=== PATIENT | female | born 1935 | race Hispanic/Latino ===

== ENCOUNTER 2017-09-30 09:38 | Outpatient (CLI) | payer MEDICARE, MEDICAID | END 2017-09-30 09:39 | disposition home or self-care (01) | LOC: BICRAD 09:38 | PROVIDERS: ATTEND Family Medicine | DX: M54.5 Low back pain (principal); M47.896 Other spondylosis, lumbar region; M41.86 Other forms of scoliosis, lumbar region | CPT/HCPCS: 72100 ==

== ENCOUNTER 2019-03-24 15:05 | Outpatient (CLI) | payer MEDICARE, MEDICAID ==
--- NOTE | 2019-03-24 16:24 | CT ---
CT HEAD WITHOUT CONTRAST: 03/24/19 HISTORY: Injury. COMPARISON: 04/28/11. FINDINGS: Mild cortical volume loss. Mild chronic ischemic change. No hemorrhage, edema, or evidence of acute i nfarct. There is ischemic changes seen in the peripheral basal ganglia regions and subcortical region s of insular cortex. These are stable. Sinuses and mastoids are clear. IMPRESSION: No evidence of hemorrhage. There are chronic changes which appear stable. No acute process. POS: [facility]
== END 2019-03-24 15:06 | disposition home or self-care (01) ==
LOC: BICCT 15:05
PROVIDERS: ATTEND Family Medicine
DX: S06.2X9A Diffuse traumatic brain injury with loss of consciousness of unspecified duration, initial encounter (principal)
CPT/HCPCS: 70450

== ENCOUNTER 2019-04-16 16:56 | Emergency (ER) | payer MEDICARE, MEDICAID ==
[2019-04-16] MEDS ORDERED: Mag-Al 1200 mg/1200 mg/30 ML UDCUP ONE (17:29)
[2019-04-16] MEDS ORDERED: Lidocaine Viscous Sol 2% 15 ml UD Cup ONE (17:29)
--- NOTE | 2019-04-16 17:38 | RAD ---
EXAM: Chest PA and lateral: HISTORY: Dysphasia. 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 This may relat e to the history of dysphasia. Recommend elective esophagram or endoscopy follow-up. Lung fong are clear. Vascular markings are normal. Heart and mediastinum appear unremarkable. Pacemaker leads are unchanged. Osseous structures are unremarkable. 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 Recomme nd elective follow-up.
--- NOTE | 2019-04-16 17:47 | RAD ---
NECK FOR SOFT TISSUES TWO VIEWS: History: Sensation foreign body. FINDINGS: Epiglottis appears normal. Hypopharanx is unremarkable. The prevertebral soft tissues appear normal. Mild degenerative changes in the cervical spine. IMPRESSION: Unremarkable soft tissue neck. POS: OFF
== END 2019-04-16 19:08 | disposition home or self-care (01) ==
LOC: ERS 16:56
DX: K44.9 Diaphragmatic hernia without obstruction or gangrene (principal); E11.9 Type 2 diabetes mellitus without complications; I10 Essential (primary) hypertension; Z79.899 Other long term (current) drug therapy; Z79.82 Long term (current) use of aspirin
CPT/HCPCS: 70360; 71046

== ENCOUNTER 2020-08-23 17:14 | Emergency (ER) | payer MEDICARE, MEDICAID ==
[2020-08-23] MEDS ORDERED: Lidocaine Viscous Sol 2% 15 ml UD Cup ONE (19:14)
[2020-08-23] MEDS ORDERED: Mag-Al 1200 mg/1200 mg/30 ML UDCUP ONE (19:14)
== END 2020-08-23 19:39 | disposition home or self-care (01) ==
LOC: ERS 17:14
DX: K21.9 Gastro-esophageal reflux disease without esophagitis (principal); E11.9 Type 2 diabetes mellitus without complications; I10 Essential (primary) hypertension; F03.90 Unspecified dementia, unspecified severity, without behavioral disturbance, psychotic disturbance, mood disturbance, and anxiety; Z79.82 Long term (current) use of aspirin; Z79.899 Other long term (current) drug therapy; Z79.84 Long term (current) use of oral hypoglycemic drugs
CPT/HCPCS: 99284

== ENCOUNTER 2020-10-23 19:11 | Inpatient (IN) | payer MEDICARE, MEDICAID ==
[2020-10-23] MEDS ORDERED: Cefepime 2 GM VIAL ONE (19:41)
[2020-10-23 19:50] LABS: #Basophils 0.1 thou/uL (0.0-0.2); #Eosinphils 0.4 thou/uL (0.0-0.7); #Lymphocytes 1.8 thou/uL (1.20-3.40); #Monocytes 0.6 thou/uL (0.11-0.59); #Neutrophils 3.6 thou/uL (1.40-6.50); %Basophils 0.8 % (0.0-1.0); %Eosinophils 6.3 % (0.0-10.0); %Lymphocytes 27.8 % (21.0-51.0); %Monocytes 9.4 % (0.0-10.0); %Neutrophils 55.7 % (42.0-75.0); Hemoglobin 14.5 g/dL (12.0-16.0); Mean Corpuscular HGB CONC 33.8 g/dL (32.0-36.0); Mean Corpuscular Hemoglobin 30.3 pg (27.0-31.0); Mean Corpuscular Volume 89.6 fL (78.0-98.0); Mean Platelet Volume 7.6 fL (7.4-10.4); Platelet Count 159 thou/uL (130-400); RBC Distribution Width 12.3 % (11.5-14.5); Red Blood Cell (RBC) Count 4.79 mill/uL (4.20-5.40); White Blood Cell (WBC) Count 6.5 thou/uL (4.8-10.8)
[2020-10-23 20:11] LABS: ALT (SGPT) 15 U/L (8-55); AST (SGOT) 24 U/L (5-34); Alkaline Phosphatase 106 U/L (40-110); Anion Gap 14 mmol/L (10-20); BUN (Urea Nitrogen) 9 mg/dL (9.8-20.1); Bilirubin, Total 0.9 mg/dL (0.2-1.2); CK (CPK) 106 U/L (29-168); Calc. Creatinine Clearance 0 mL/min (70-130); Calcium 9.3 mg/dL (7.8-10.44); Carbon Dioxide 24 mmol/L (23-31); Chloride 97 mmol/L (98-107); Globulin 3.8 g/dL (2.4-3.5); Glucose 258 mg/dL (83-110); Magnesium 1.7 mg/dL (1.6-2.6); Potassium 3.7 mmol/L (3.5-5.1); Protein, Total 7.8 g/dL (5.8-8.1); Sodium 131 mmol/L (136-145)
[2020-10-23 20:47] LABS: Bacteria/HPF 4+ HPF (None Seen); Bilirubin Negative (Negative); Blood, Urine Negative (Negative); Clarity Turbid (Clear); Glucose, Urine (Dipstick) Normal (Negative); Ketone, Urine Negative (Negative); Leukocyte 250 Leu/uL (Negative); Nitrite 1+ (Negative); Protein, Urine (Dipstick) Negative (Neg-Trace); RBC/HPF 0-3 HPF (0-3); Specific Gravity, Urine 1.008 (1.002-1.036); Squamous Epithelial 0-3 HPF (0-3); Urobilinogen Normal mg/dL (Less than 2)
[2020-10-23 23:31] LABS: Hemoglobin A1c 6.8 % (4.0-6.0)
[2020-10-24] MEDS ORDERED: Acetaminophen 325 MG TAB PO PRN (00:46)
[2020-10-24] MEDS ORDERED: Dextrose 50% Abboject 50 ML SYRINGE SLOW IVP PRN (02:21)
[2020-10-24] MEDS ORDERED: HumaLOG 300 UNITS/3 ML VIAL SC PRN ×2 (02:21)
[2020-10-24] MEDS ORDERED: Dextrose 5% in Water 1,000 ML IV PRN (02:21)
[2020-10-24] MEDS ORDERED: busPIRone HCl 10 MG TAB PO PRN (02:22)
[2020-10-24] MEDS ORDERED: cefTRIAXone\\ROCEPHIN 1 GM in Sodium Chloride 0.9% 100 ML IVPB SCH (03:00)
[2020-10-24] MEDS: cefTRIAXone\\ROCEPHIN 2 GM in Sodium Chloride 0.9% 100 ML IVPB SCH (03:22)
[2020-10-24 03:41] VITALS: BMI 29.7
[2020-10-24 06:18] LABS: #Eosinphils 0.2 thou/uL (0.0-0.7); #Lymphocytes 1.4 thou/uL (1.20-3.40); #Monocytes 0.8 thou/uL (0.11-0.59); #Neutrophils 5.4 thou/uL (1.40-6.50); %Basophils 0.3 % (0.0-1.0); %Eosinophils 2.8 % (0.0-10.0); %Lymphocytes 18.1 % (21.0-51.0); %Monocytes 9.9 % (0.0-10.0); %Neutrophils 68.9 % (42.0-75.0); Hemoglobin 12.5 g/dL (12.0-16.0); Mean Corpuscular HGB CONC 33.5 g/dL (32.0-36.0); Mean Corpuscular Volume 89.4 fL (78.0-98.0); Mean Platelet Volume 7.7 fL (7.4-10.4); Platelet Count 138 thou/uL (130-400); RBC Distribution Width 12.3 % (11.5-14.5); Red Blood Cell (RBC) Count 4.18 mill/uL (4.20-5.40); White Blood Cell (WBC) Count 7.9 thou/uL (4.8-10.8)
[2020-10-24 06:37] LABS: Anion Gap 11 mmol/L (10-20); BUN (Urea Nitrogen) 10 mg/dL (9.8-20.1); Calc. Creatinine Clearance 57 mL/min (70-130); Calcium 8.4 mg/dL (7.8-10.44); Carbon Dioxide 22 mmol/L (23-31); Chloride 106 mmol/L (98-107); Glucose 65 mg/dL (83-110); Potassium 3.5 mmol/L (3.5-5.1); Sodium 135 mmol/L (136-145)
[2020-10-24] MEDS: Cyanocobalamin (Vitamin B-12) 1,000 MCG TAB PO SCH (08:01)
[2020-10-24] MEDS: Oxybutynin ER 5 MG TAB PO SCH ×2 (08:02→19:43)
[2020-10-24] MEDS: Glimepiride 4 MG TAB PO SCH ×2 (08:02→19:41)
[2020-10-24] MEDS: Carvedilol 6.25 MG TAB PO SCH ×2 (08:03→19:42)
[2020-10-24] MEDS: Alogliptin 25 MG TAB PO SCH (08:04)
[2020-10-24] MEDS: Enoxaparin Sodium 40 MG/0.4 ML SYRINGE SC SCH (08:04)
[2020-10-24] MEDS: Aspirin 81 mg Enteric Coated Tablet PO SCH (08:04)
[2020-10-24 10:08] LABS: SARS-CoV-2 PCR by NAA Not Detected (NotDetected)
[2020-10-24] MEDS: Escitalopram Oxalate 20 mg Tablet PO SCH (19:41)
[2020-10-24] MEDS: Atorvastatin Calcium 40 MG TAB PO SCH (19:42)
[2020-10-24] MEDS: Losartan 25 MG TAB PO SCH (19:43)
[2020-10-25] MEDS: cefTRIAXone\\ROCEPHIN 2 GM in Sodium Chloride 0.9% 100 ML IVPB SCH (03:56)
[2020-10-25] MEDS: Cyanocobalamin (Vitamin B-12) 1,000 MCG TAB PO SCH (09:27)
[2020-10-25] MEDS: Carvedilol 6.25 MG TAB PO SCH ×2 (09:27→21:42)
[2020-10-25] MEDS: Oxybutynin ER 5 MG TAB PO SCH ×2 (09:28→21:43)
[2020-10-25] MEDS: Alogliptin 25 MG TAB PO SCH (09:29)
[2020-10-25] MEDS: Aspirin 81 mg Enteric Coated Tablet PO SCH (09:29)
[2020-10-25] MEDS: Glimepiride 4 MG TAB PO SCH ×2 (09:29→21:43)
[2020-10-25] MEDS: Enoxaparin Sodium 40 MG/0.4 ML SYRINGE SC SCH (09:36)
[2020-10-25] MEDS ORDERED: QUEtiapine Fumarate ER 50 MG TAB PO SCH (21:00)
[2020-10-25] MEDS ORDERED: Famotidine 20 MG TAB PO SCH (21:00)
[2020-10-25] MEDS: Atorvastatin Calcium 40 MG TAB PO SCH (21:41)
[2020-10-25] MEDS: Escitalopram Oxalate 20 mg Tablet PO SCH (21:42)
[2020-10-25] MEDS: Losartan 25 MG TAB PO SCH (21:43)
[2020-10-26] MEDS: cefTRIAXone\\ROCEPHIN 2 GM in Sodium Chloride 0.9% 100 ML IVPB SCH (04:20)
[2020-10-26 08:02] VITALS: BP 123/72; TEMP 97.9
[2020-10-26] MEDS: Oxybutynin ER 5 MG TAB PO SCH (08:32)
[2020-10-26] MEDS: Alogliptin 25 MG TAB PO SCH (08:33)
[2020-10-26] MEDS: Cyanocobalamin (Vitamin B-12) 1,000 MCG TAB PO SCH (08:33)
[2020-10-26] MEDS: Enoxaparin Sodium 40 MG/0.4 ML SYRINGE SC SCH (08:33)
[2020-10-26] MEDS: Carvedilol 6.25 MG TAB PO SCH (08:33)
[2020-10-26] MEDS: Glimepiride 4 MG TAB PO SCH (08:33)
[2020-10-26] MEDS: Aspirin 81 mg Enteric Coated Tablet PO SCH (08:33)
== END 2020-10-26 10:40 | disposition home or self-care (01) | DRG 872 ==
LOC: ERS 19:11 → SURG A 22:21
PROVIDERS: ADMIT Family Medicine; ATTEND Family Medicine
DX: A41.9 Sepsis, unspecified organism (principal); G93.49 Other encephalopathy; N39.0 Urinary tract infection, site not specified; E87.1 Hypo-osmolality and hyponatremia; I13.0 Hypertensive heart and chronic kidney disease with heart failure and stage 1 through stage 4 chronic kidney disease, or unspecified chronic kidney disease; F03.90 Unspecified dementia, unspecified severity, without behavioral disturbance, psychotic disturbance, mood disturbance, and anxiety; I50.9 Heart failure, unspecified; F41.9 Anxiety disorder, unspecified; N18.31 Chronic kidney disease, stage 3a; E11.22 Type 2 diabetes mellitus with diabetic chronic kidney disease; F32.9 Major depressive disorder, single episode, unspecified; K21.9 Gastro-esophageal reflux disease without esophagitis; Z20.822 Contact with and (suspected) exposure to COVID-19; Z88.8 Allergy status to other drugs, medicaments and biological substances; Z79.82 Long term (current) use of aspirin; Z95.810 Presence of automatic (implantable) cardiac defibrillator; Z90.710 Acquired absence of both cervix and uterus; Z95.0 Presence of cardiac pacemaker
CPT/HCPCS: 36415; 36416; 70450; 71045; 80048; 80053; 81003; 81015; 82550; 83036; 83605; 83735; 84145; 84443; 84484; 85025; 87040; 87077; 87086; 87186; 87635; 90471; 90732; 93005; 96374; G0009; J0692; J0696; J1650; J3490; U0003; U0005

== ENCOUNTER 2020-11-08 13:57 | Emergency (ER) | payer MEDICARE, MEDICAID ==
[2020-11-08 14:59] LABS: #Basophils 0.1 thou/uL (0.0-0.2); #Eosinphils 0.1 thou/uL (0.0-0.7); #Monocytes 0.9 thou/uL (0.11-0.59); %Basophils 0.5 % (0.0-1.0); %Eosinophils 0.8 % (0.0-10.0); %Lymphocytes 16.6 % (21.0-51.0); %Monocytes 7.4 % (0.0-10.0); %Neutrophils 74.8 % (42.0-75.0); Hemoglobin 13.2 g/dL (12.0-16.0); Mean Corpuscular HGB CONC 34.2 g/dL (32.0-36.0); Mean Corpuscular Hemoglobin 30.4 pg (27.0-31.0); Mean Platelet Volume 7.4 fL (7.4-10.4); Platelet Count 159 thou/uL (130-400); RBC Distribution Width 12.3 % (11.5-14.5); Red Blood Cell (RBC) Count 4.35 mill/uL (4.20-5.40)
[2020-11-08 15:20] LABS: ALT (SGPT) 11 U/L (8-55); AST (SGOT) 20 U/L (5-34); Albumin 3.9 g/dL (3.4-4.8); Alkaline Phosphatase 96 U/L (40-110); Anion Gap 12 mmol/L (10-20); BUN (Urea Nitrogen) 15 mg/dL (9.8-20.1); Bilirubin, Total 0.7 mg/dL (0.2-1.2); Calc. Creatinine Clearance 0 mL/min (70-130); Carbon Dioxide 24 mmol/L (23-31); Chloride 99 mmol/L (98-107); Globulin 3.3 g/dL (2.4-3.5); Glucose 161 mg/dL (83-110); Potassium 4.2 mmol/L (3.5-5.1); Protein, Total 7.2 g/dL (5.8-8.1); Sodium 131 mmol/L (136-145)
== END 2020-11-08 16:55 | disposition home or self-care (01) ==
LOC: ERS 13:57
DX: N39.0 Urinary tract infection, site not specified (principal); R53.83 Other fatigue; Z79.899 Other long term (current) drug therapy; Z79.82 Long term (current) use of aspirin; E11.9 Type 2 diabetes mellitus without complications; I10 Essential (primary) hypertension; F03.90 Unspecified dementia, unspecified severity, without behavioral disturbance, psychotic disturbance, mood disturbance, and anxiety
CPT/HCPCS: 36415; 80053; 83605; 85025; 99284

== ENCOUNTER 2022-04-16 10:24 | Inpatient (IN) | payer MEDICARE, MEDICAID ==
[2022-04-16 11:09] LABS: #Monocytes 0.7 thou/uL (0.11-0.59); #Neutrophils 7.1 thou/uL (1.40-6.50); %Eosinophils 0.1 % (0.0-10.0); %Lymphocytes 10.8 % (21.0-51.0); %Monocytes 8.4 % (0.0-10.0); %Neutrophils 80.7 % (42.0-75.0); Hemoglobin 10.8 g/dL (12.0-16.0); Mean Corpuscular HGB CONC 33.5 g/dL (32.0-36.0); Mean Corpuscular Hemoglobin 28.9 pg (27.0-31.0); Mean Corpuscular Volume 86.2 fL (78.0-98.0); Mean Platelet Volume 7.6 fL (7.4-10.4); Platelet Count 206 thou/uL (130-400); RBC Distribution Width 14.1 % (11.5-14.5); Red Blood Cell (RBC) Count 3.74 mill/uL (4.20-5.40); White Blood Cell (WBC) Count 8.8 thou/uL (4.8-10.8)
[2022-04-16 11:23] LABS: ALT (SGPT) 14 U/L (8-55); AST (SGOT) 22 U/L (5-34); Albumin 3.4 g/dL (3.4-4.8); Alkaline Phosphatase 92 U/L (40-110); Anion Gap 13 mmol/L (10-20); BUN (Urea Nitrogen) 18 mg/dL (9.8-20.1); Bilirubin, Total 0.9 mg/dL (0.2-1.2); Calc. Creatinine Clearance 0 mL/min (70-130); Calcium 8.9 mg/dL (7.8-10.44); Carbon Dioxide 23 mmol/L (23-31); Estimated GFR 46; Globulin 3.7 g/dL (2.4-3.5); Glucose 203 mg/dL (83-110); Potassium 4.1 mmol/L (3.5-5.1); Protein, Total 7.1 g/dL (5.8-8.1)
[2022-04-16 11:42] LABS: Chloride 93 mmol/L (98-107); Sodium 125 mmol/L (136-145)
[2022-04-16 12:24] LABS: Bacteria/HPF 4+ HPF (None Seen); Bilirubin Negative (Negative); Blood, Urine Negative (Negative); Clarity Clear (Clear); Glucose, Urine (Dipstick) 70 mg/dL (Negative); Ketone, Urine Negative (Negative); Leukocyte 250 Leu/uL (Negative); Nitrite Negative (Negative); Protein, Urine (Dipstick) 20 mg/dL (Neg-Trace); RBC/HPF 0-3 HPF (0-3); Specific Gravity, Urine 1.015 (1.002-1.036); Squamous Epithelial 0-3 HPF (0-3); Urobilinogen Normal mg/dL (Less than 2)
[2022-04-16] MEDS ORDERED: cefTRIAXone\\ROCEPHIN 1 GM VIAL ONE (12:37)
[2022-04-16] MEDS ORDERED: Vancomycin 1 GM/200 ML BAG ONE (13:52)
[2022-04-16] MEDS ORDERED: Dextrose 5% in Water 1,000 ML IV PRN (14:51)
[2022-04-16] MEDS ORDERED: HumaLOG 300 UNITS/3 ML VIAL SC PRN (14:51)
[2022-04-16] MEDS ORDERED: Dextrose 50% Abboject 50 ML SYRINGE SLOW IVP PRN (14:57)
[2022-04-16] MEDS ORDERED: Lactated Ringer's 1,000 ML IV SCH (15:15)
[2022-04-16 15:37] LABS: Hemoglobin A1c 7.1 % (4.0-6.0)
[2022-04-16 15:51] LABS: Iron 14 ug/dL (50-170); Iron Binding Capacity, Total 169 mcg/dL (265-497); Magnesium 1.5 mg/dL (1.6-2.6)
[2022-04-16 15:53] LABS: Iron 14 ug/dL (50-170); Iron Binding Capacity, Total 170 mcg/dL (265-497)
[2022-04-16] MEDS ORDERED: Gentamicin Sulfate 100 MG in Premix Bag 1 BAG IVPB SCH (16:00)
[2022-04-16] MEDS ORDERED: GENTAMICIN IVPB SCH (16:00)
[2022-04-16] MEDS ORDERED: SODIUM CHLORIDE 0.9% IVPB SCH (16:00)
[2022-04-16] MEDS ORDERED: Escitalopram Oxalate 20 mg Tablet PO SCH (18:45)
[2022-04-17 04:11] LABS: #Eosinphils 0.1 thou/uL (0.0-0.7); #Lymphocytes 1.1 thou/uL (1.20-3.40); #Monocytes 0.7 thou/uL (0.11-0.59); #Neutrophils 6.1 thou/uL (1.40-6.50); %Basophils 0.1 % (0.0-1.0); %Eosinophils 1.1 % (0.0-10.0); %Lymphocytes 13.6 % (21.0-51.0); %Monocytes 8.3 % (0.0-10.0); %Neutrophils 76.9 % (42.0-75.0); Hemoglobin 10.3 g/dL (12.0-16.0); Mean Corpuscular HGB CONC 33.7 g/dL (32.0-36.0); Mean Corpuscular Hemoglobin 29.2 pg (27.0-31.0); Mean Corpuscular Volume 86.9 fL (78.0-98.0); Mean Platelet Volume 7.2 fL (7.4-10.4); Platelet Count 202 thou/uL (130-400); RBC Distribution Width 14.1 % (11.5-14.5); Red Blood Cell (RBC) Count 3.51 mill/uL (4.20-5.40); White Blood Cell (WBC) Count 7.9 thou/uL (4.8-10.8)
[2022-04-17 04:36] LABS: Anion Gap 14 mmol/L (10-20); BUN (Urea Nitrogen) 15 mg/dL (9.8-20.1); Calc. Creatinine Clearance 55 mL/min (70-130); Calcium 8.6 mg/dL (7.8-10.44); Carbon Dioxide 19 mmol/L (23-31); Chloride 96 mmol/L (98-107); Estimated GFR 70; Glucose 129 mg/dL (83-110); Potassium 3.8 mmol/L (3.5-5.1); Sodium 125 mmol/L (136-145)
[2022-04-17] MEDS ORDERED: Magnesium Oxide 400 MG TAB PO SCH ×2 (06:14→12:19)
[2022-04-17] MEDS ORDERED: FLU VACC QS2022-23(65YR UP)/PF 240 MCG/0.7 ML SYRINGE IM ONE (09:00)
[2022-04-17] MEDS ORDERED: Enoxaparin Sodium 30 MG/0.3 ML SYRINGE SC SCH (09:00)
[2022-04-17] MEDS ORDERED: Escitalopram Oxalate 20 mg Tablet PO SCH (09:00)
[2022-04-17] MEDS ORDERED: busPIRone HCl 10 MG TAB PO PRN (10:25)
[2022-04-17] MEDS ORDERED: Carvedilol 6.25 MG TAB PO SCH (10:30)
[2022-04-17] MEDS ORDERED: Aspirin 81 mg Enteric Coated Tablet PO SCH (11:00)
[2022-04-17] MEDS: HumaLOG 300 UNITS/3 ML VIAL SC PRN (11:39)
[2022-04-17] MEDS ORDERED: cefTRIAXone\\ROCEPHIN 1 GM in Sodium Chloride 0.9% 100 ML IVPB SCH (12:00)
[2022-04-17 12:08] LABS: Magnesium 1.5 mg/dL (1.6-2.6)
[2022-04-17 13:39] VITALS: BMI 26.6
[2022-04-17 13:53] LABS: Actual Bicarbonate (HCO3a) 13.8 mEq/L (22-28); Base Excess (BEa) -8.3 mEq/L (-2.0 to +3.0); Calcium, Ionized (arterial) 1.05 mmol/L (1.12-1.30); Carboxyhemoglobin (COHb) 0.3 gm% (0.0-3.0); Hemoglobin (Hb) 10.3 g/dL (12.0-16.0); O2 Tension (PaO2), arterial 194.1 mmHg (> 60.0); Potassium - ABG Lab 3.68 mmol/L (3.70-5.30); pH, Arterial 7.46 (7.35-7.45)
[2022-04-17 13:56] LABS: Puncture Site RFA
[2022-04-17] MEDS: NOREPINEPHRINE 8 MG/250 ML-D5W 250 ML IVPB SCH (14:00)
[2022-04-17] MEDS: Sodium Bicarb 50 MEQ/50 ML VIAL ONE ×2 (14:11→14:12)
[2022-04-17] MEDS: Magnesium 2 GM/50 ML(in water) 2 GM in Premix Bag 1 BAG IVPB SCH ×2 (15:20→16:27)
[2022-04-17 15:31] LABS: #Lymphocytes 1.2 thou/uL (1.20-3.40); #Monocytes 0.7 thou/uL (0.11-0.59); %Eosinophils 0.4 % (0.0-10.0); %Lymphocytes 10.7 % (21.0-51.0); %Monocytes 6.3 % (0.0-10.0); %Neutrophils 82.7 % (42.0-75.0); Hemoglobin 10.7 g/dL (12.0-16.0); Mean Corpuscular HGB CONC 33.1 g/dL (32.0-36.0); Mean Corpuscular Hemoglobin 28.6 pg (27.0-31.0); Mean Corpuscular Volume 86.6 fL (78.0-98.0); Mean Platelet Volume 7.4 fL (7.4-10.4); Platelet Count 225 thou/uL (130-400); RBC Distribution Width 14.4 % (11.5-14.5); Red Blood Cell (RBC) Count 3.73 mill/uL (4.20-5.40); White Blood Cell (WBC) Count 10.9 thou/uL (4.8-10.8)
[2022-04-17 15:44] LABS: ALT (SGPT) 119 U/L (8-55); AST (SGOT) 265 U/L (5-34); Albumin 2.7 g/dL (3.4-4.8); Alkaline Phosphatase 188 U/L (40-110); Anion Gap 16 mmol/L (10-20); BUN (Urea Nitrogen) 16 mg/dL (9.8-20.1); Bilirubin, Total 1.6 mg/dL (0.2-1.2); Calc. Creatinine Clearance 37 mL/min (70-130); Calcium 8.2 mg/dL (7.8-10.44); Carbon Dioxide 22 mmol/L (23-31); Chloride 96 mmol/L (98-107); Estimated GFR 46; Globulin 3.3 g/dL (2.4-3.5); Glucose 190 mg/dL (83-110); Magnesium 1.7 mg/dL (1.6-2.6); Phosphorus 3.7 mg/dL (2.3-4.7); Potassium 4.3 mmol/L (3.5-5.1); Sodium 130 mmol/L (136-145)
[2022-04-17 15:55] LABS: Lactic Acid 5.2 mmol/L (0.5-2.2)
[2022-04-17 16:14] LABS: CKMB 3.6 ng/mL (0-6.6)
[2022-04-17] MEDS ORDERED: Ventilator Sedation Protocol FS PRN (17:45)
[2022-04-17] MEDS ORDERED: Midazolam HCl 2 mg/2 ml Vial SLOW IVP PRN (18:16)
[2022-04-17] MEDS ORDERED: Propofol BOLUS 1,000 MG/100 ML VIAL IV PRN (18:30)
[2022-04-17] MEDS ORDERED: Morphine 4 MG/ML VIAL SLOW IVP PRN (18:30)
[2022-04-17] MEDS ORDERED: Fentanyl CADD 100 ML IV SCH (18:30)
[2022-04-17] MEDS ORDERED: Propofol 1,000 MG/100 ML VIAL IV PRN (18:30)
[2022-04-17] MEDS ORDERED: Fentanyl BOLUS 250 ML IVPB PRN (18:30)
[2022-04-17] MEDS ORDERED: DISCONTINUE PREVIOUS NARCOTIC PAIN MEDICATIONS AND BENZODIAZEPINES FS SCH (18:30)
[2022-04-17] MEDS: Rosuvastatin 20 MG TAB PO SCH (19:31)
[2022-04-17] MEDS: Famotidine 20 MG TAB PO SCH (19:31)
[2022-04-17] MEDS: Carvedilol 6.25 MG TAB PO SCH (20:00)
[2022-04-18 05:00] LABS: #Lymphocytes 1.1 thou/uL (1.20-3.40); #Monocytes 0.7 thou/uL (0.11-0.59); #Neutrophils 6.5 thou/uL (1.40-6.50); %Basophils 0.2 % (0.0-1.0); %Eosinophils 0.1 % (0.0-10.0); %Lymphocytes 12.6 % (21.0-51.0); %Monocytes 8.8 % (0.0-10.0); %Neutrophils 78.3 % (42.0-75.0); Mean Corpuscular HGB CONC 33.8 g/dL (32.0-36.0); Mean Corpuscular Hemoglobin 28.9 pg (27.0-31.0); Mean Corpuscular Volume 85.7 fL (78.0-98.0); Mean Platelet Volume 8.4 fL (7.4-10.4); Platelet Count 236 thou/uL (130-400); RBC Distribution Width 14.5 % (11.5-14.5); Red Blood Cell (RBC) Count 3.45 mill/uL (4.20-5.40); White Blood Cell (WBC) Count 8.4 thou/uL (4.8-10.8)
[2022-04-18 05:15] LABS: Anion Gap 17 mmol/L (10-20); BUN (Urea Nitrogen) 21 mg/dL (9.8-20.1); Calc. Creatinine Clearance 35 mL/min (70-130); Calcium 8.2 mg/dL (7.8-10.44); Carbon Dioxide 20 mmol/L (23-31); Chloride 95 mmol/L (98-107); Estimated GFR 40; Glucose 188 mg/dL (83-110); Magnesium 2.5 mg/dL (1.6-2.6); Potassium 3.9 mmol/L (3.5-5.1); Sodium 128 mmol/L (136-145)
[2022-04-18] MEDS ORDERED: Lactated Ringer's 1,000 ML IV SCH (08:45)
[2022-04-18] MEDS: Carvedilol 6.25 MG TAB PO SCH ×2 (08:51→09:06)
[2022-04-18] MEDS: Enoxaparin Sodium 40 MG/0.4 ML SYRINGE SC SCH (08:51)
[2022-04-18] MEDS: Aspirin 81 mg Enteric Coated Tablet PO SCH (08:51)
[2022-04-18] MEDS: Alogliptin 6.25 MG TAB PO SCH (09:23)
[2022-04-18 10:23] LABS: Lactic Acid 2.1 mmol/L (0.5-2.2)
[2022-04-18] MEDS: HumaLOG 300 UNITS/3 ML VIAL SC PRN ×2 (11:42→16:56)
[2022-04-18] MEDS: cefTRIAXone\\ROCEPHIN 2 GM in Sodium Chloride 0.9% 100 ML IVPB SCH (13:03)
[2022-04-18] MEDS: Dextrose 5 % And 0.9 % NaCl 1,000 ML IV SCH (15:15)
[2022-04-18] MEDS: NOREPINEPHRINE 8 MG/250 ML-D5W 250 ML IVPB SCH (18:20)
[2022-04-18] MEDS: Rosuvastatin 20 MG TAB PO SCH (21:07)
[2022-04-18] MEDS: Famotidine 20 MG TAB PO SCH (21:07)
[2022-04-19] MEDS: Dextrose 5 % And 0.9 % NaCl 1,000 ML IV SCH (01:00)
[2022-04-19] MEDS ORDERED: Lactated Ringer's 1,000 ML IV SCH (06:15)
[2022-04-19] MEDS: HumaLOG 300 UNITS/3 ML VIAL SC PRN ×2 (06:38→16:04)
[2022-04-19 07:43] LABS: #Eosinphils 0.1 thou/uL (0.0-0.7); #Lymphocytes 1.1 thou/uL (1.20-3.40); #Monocytes 0.9 thou/uL (0.11-0.59); #Neutrophils 8.6 thou/uL (1.40-6.50); %Basophils 0.1 % (0.0-1.0); %Eosinophils 0.6 % (0.0-10.0); %Lymphocytes 10.4 % (21.0-51.0); %Monocytes 8.2 % (0.0-10.0); %Neutrophils 80.8 % (42.0-75.0); Hemoglobin 9.6 g/dL (12.0-16.0); Mean Corpuscular HGB CONC 33.5 g/dL (32.0-36.0); Mean Corpuscular Hemoglobin 28.9 pg (27.0-31.0); Mean Corpuscular Volume 86.3 fL (78.0-98.0); Mean Platelet Volume 7.1 fL (7.4-10.4); Platelet Count 268 thou/uL (130-400); RBC Distribution Width 14.5 % (11.5-14.5); Red Blood Cell (RBC) Count 3.33 mill/uL (4.20-5.40); White Blood Cell (WBC) Count 10.7 thou/uL (4.8-10.8)
[2022-04-19 07:52] LABS: Anion Gap 13 mmol/L (10-20); BUN (Urea Nitrogen) 29 mg/dL (9.8-20.1); Calc. Creatinine Clearance 30 mL/min (70-130); Calcium 8.1 mg/dL (7.8-10.44); Carbon Dioxide 23 mmol/L (23-31); Chloride 96 mmol/L (98-107); Estimated GFR 30; Glucose 220 mg/dL (83-110); Potassium 3.5 mmol/L (3.5-5.1); Sodium 128 mmol/L (136-145)
[2022-04-19 07:53] LABS: ALT (SGPT) 68 U/L (8-55); AST (SGOT) 73 U/L (5-34); Alkaline Phosphatase 157 U/L (40-110); Bilirubin, Direct 0.5 mg/dL (0.1-0.3); Bilirubin, Total 0.8 mg/dL (0.2-1.2); Protein, Total 6.2 g/dL (5.8-8.1)
[2022-04-19 07:58] LABS: Troponin I 1.214 ng/mL (< 0.028)
[2022-04-19] MEDS: Enoxaparin Sodium 40 MG/0.4 ML SYRINGE SC SCH (09:20)
[2022-04-19] MEDS: Aspirin 81 mg Enteric Coated Tablet PO SCH (09:20)
[2022-04-19] MEDS: Alogliptin 6.25 MG TAB PO SCH (09:37)
[2022-04-19] MEDS ORDERED: Potassium Chloride 20 MEQ in Premix Bag 1 BAG IVPB SCH (10:00)
[2022-04-19] MEDS: Midodrine HCl 5 MG TAB PO SCH ×2 (14:18→20:43)
[2022-04-19] MEDS: cefTRIAXone\\ROCEPHIN 2 GM in Sodium Chloride 0.9% 100 ML IVPB SCH (14:19)
[2022-04-19] MEDS ORDERED: DOBUTamine 500 mg/250 ml 500 MG in Premix Bag 1 BAG IVPB SCH (15:00)
[2022-04-19] MEDS ORDERED: Gentamicin 80 MG/2 ML VIAL IM SCH (17:00)
[2022-04-19] MEDS: Rosuvastatin 20 MG TAB PO SCH (20:42)
[2022-04-19] MEDS: Famotidine 20 MG TAB PO SCH (20:43)
[2022-04-20] MEDS: NOREPINEPHRINE 8 MG/250 ML-D5W 250 ML IVPB SCH ×2 (00:06→00:17)
[2022-04-20] MEDS ORDERED: Haloperidol Lactate 5 MG/ML VIAL SLOW IVP SCH (00:30)
[2022-04-20 04:17] LABS: #Eosinphils 0.1 thou/uL (0.0-0.7); #Lymphocytes 0.7 thou/uL (1.20-3.40); #Monocytes 0.7 thou/uL (0.11-0.59); #Neutrophils 8.8 thou/uL (1.40-6.50); %Basophils 0.1 % (0.0-1.0); %Eosinophils 0.6 % (0.0-10.0); %Monocytes 6.5 % (0.0-10.0); %Neutrophils 85.8 % (42.0-75.0); Mean Corpuscular HGB CONC 33.6 g/dL (32.0-36.0); Mean Corpuscular Hemoglobin 29.8 pg (27.0-31.0); Mean Corpuscular Volume 88.6 fL (78.0-98.0); Platelet Count 296 thou/uL (130-400); RBC Distribution Width 14.6 % (11.5-14.5); Red Blood Cell (RBC) Count 3.36 mill/uL (4.20-5.40); White Blood Cell (WBC) Count 10.3 thou/uL (4.8-10.8)
[2022-04-20 04:27] LABS: Anion Gap 17 mmol/L (10-20); BUN (Urea Nitrogen) 23 mg/dL (9.8-20.1); Calc. Creatinine Clearance 38 mL/min (70-130); Calcium 8.4 mg/dL (7.8-10.44); Carbon Dioxide 18 mmol/L (23-31); Chloride 98 mmol/L (98-107); Estimated GFR 39; Glucose 218 mg/dL (83-110); Potassium 3.6 mmol/L (3.5-5.1); Sodium 129 mmol/L (136-145)
[2022-04-20] MEDS: HumaLOG 300 UNITS/3 ML VIAL SC PRN ×2 (06:02→11:16)
[2022-04-20] MEDS: Enoxaparin Sodium 40 MG/0.4 ML SYRINGE SC SCH (09:02)
[2022-04-20] MEDS: Alogliptin 6.25 MG TAB PO SCH (09:03)
[2022-04-20] MEDS: Aspirin 81 mg Enteric Coated Tablet PO SCH (09:03)
[2022-04-20] MEDS: Midodrine HCl 5 MG TAB PO SCH ×3 (09:03→20:21)
[2022-04-20] MEDS: Digoxin 0.5 MG/2 ML AMP SLOW IVP SCH ×3 (10:11→14:47)
[2022-04-20] MEDS: cefTRIAXone\\ROCEPHIN 2 GM in Sodium Chloride 0.9% 100 ML IVPB SCH (13:57)
[2022-04-20] MEDS: Rosuvastatin 20 MG TAB PO SCH (20:20)
[2022-04-20] MEDS: Famotidine 20 MG TAB PO SCH (20:21)
[2022-04-21 06:42] LABS: #Eosinphils 0.3 thou/uL (0.0-0.7); #Lymphocytes 0.8 thou/uL (1.20-3.40); #Monocytes 0.8 thou/uL (0.11-0.59); #Neutrophils 10.3 thou/uL (1.40-6.50); %Basophils 0.2 % (0.0-1.0); %Eosinophils 2.1 % (0.0-10.0); %Lymphocytes 6.2 % (21.0-51.0); %Monocytes 6.6 % (0.0-10.0); Hemoglobin 9.8 g/dL (12.0-16.0); Mean Corpuscular HGB CONC 31.5 g/dL (32.0-36.0); Mean Corpuscular Hemoglobin 28.5 pg (27.0-31.0); Mean Corpuscular Volume 90.2 fL (78.0-98.0); Mean Platelet Volume 7.8 fL (7.4-10.4); Platelet Count 281 thou/uL (130-400); Red Blood Cell (RBC) Count 3.45 mill/uL (4.20-5.40); White Blood Cell (WBC) Count 12.2 thou/uL (4.8-10.8)
[2022-04-21 06:56] LABS: Anion Gap 15 mmol/L (10-20); BUN (Urea Nitrogen) 17 mg/dL (9.8-20.1); Calc. Creatinine Clearance 41 mL/min (70-130); Calcium 8.3 mg/dL (7.8-10.44); Carbon Dioxide 20 mmol/L (23-31); Chloride 100 mmol/L (98-107); Estimated GFR 46; Glucose 133 mg/dL (83-110); Potassium 3.8 mmol/L (3.5-5.1); Sodium 131 mmol/L (136-145)
[2022-04-21 07:43] VITALS: BP 125/78; TEMP 98.8
[2022-04-21] MEDS: Aspirin 81 mg Enteric Coated Tablet PO SCH (08:43)
[2022-04-21] MEDS: Digoxin 0.5 MG/2 ML AMP SLOW IVP SCH ×2 (08:43→08:52)
[2022-04-21] MEDS: Midodrine HCl 5 MG TAB PO SCH (08:43)
[2022-04-21] MEDS ORDERED: Enoxaparin Sodium 30 MG/0.3 ML SYRINGE SC SCH (09:00)
[2022-04-22] MEDS ORDERED: Enoxaparin Sodium 40 MG/0.4 ML SYRINGE SC SCH (09:00)
== END 2022-04-21 11:45 | disposition hospice, home (50) | DRG 70 ==
LOC: ERS 10:24 → 2NO 14:59 → OBSVTOIN 04-17 10:11 → CCU 04-17 13:43 → T4-A 04-20 19:45
PROVIDERS: ADMIT Student in an Organized Health Care Education/Training Program; ATTEND Student in an Organized Health Care Education/Training Program
PROC: 5A12012 Performance of Cardiac Output, Single, Manual (ICD-10-PCS; principal; 2022-04-17)
PROC: 3E033XZ Introduction of Vasopressor into Peripheral Vein, Percutaneous Approach (ICD-10-PCS; 2022-04-17)
PROC: 0BH17EZ Insertion of Endotracheal Airway into Trachea, Via Natural or Artificial Opening (ICD-10-PCS; 2022-04-17)
PROC: 5A1935Z Respiratory Ventilation, Less than 24 Consecutive Hours (ICD-10-PCS; 2022-04-17)
PROC: 5A09457 Assistance with Respiratory Ventilation, 24-96 Consecutive Hours, Continuous Positive Airway Pressure (ICD-10-PCS; 2022-04-18)
DX: G93.41 Metabolic encephalopathy (principal); A41.9 Sepsis, unspecified organism; I46.2 Cardiac arrest due to underlying cardiac condition; J96.01 Acute respiratory failure with hypoxia; N39.0 Urinary tract infection, site not specified; I47.20 Ventricular tachycardia, unspecified; I50.22 Chronic systolic (congestive) heart failure; I42.9 Cardiomyopathy, unspecified; N17.9 Acute kidney failure, unspecified; E87.0 Hyperosmolality and hypernatremia; I13.0 Hypertensive heart and chronic kidney disease with heart failure and stage 1 through stage 4 chronic kidney disease, or unspecified chronic kidney disease; I24.8 Other forms of acute ischemic heart disease; E87.1 Hypo-osmolality and hyponatremia; Z66 Do not resuscitate; Z51.5 Encounter for palliative care; Z20.822 Contact with and (suspected) exposure to COVID-19; B96.1 Klebsiella pneumoniae [K. pneumoniae] as the cause of diseases classified elsewhere; I08.1 Rheumatic disorders of both mitral and tricuspid valves; I48.91 Unspecified atrial fibrillation; R74.01 Elevation of levels of liver transaminase levels; F03.90 Unspecified dementia, unspecified severity, without behavioral disturbance, psychotic disturbance, mood disturbance, and anxiety; E78.5 Hyperlipidemia, unspecified; E83.42 Hypomagnesemia; K21.9 Gastro-esophageal reflux disease without esophagitis; E11.22 Type 2 diabetes mellitus with diabetic chronic kidney disease; N18.30 Chronic kidney disease, stage 3 unspecified; D63.1 Anemia in chronic kidney disease; E86.1 Hypovolemia; F41.9 Anxiety disorder, unspecified; I95.9 Hypotension, unspecified; R00.1 Bradycardia, unspecified; F32.A Depression, unspecified; N32.81 Overactive bladder; E86.0 Dehydration; I45.10 Unspecified right bundle-branch block; I45.81 Long QT syndrome; Z87.440 Personal history of urinary (tract) infections; Z88.8 Allergy status to other drugs, medicaments and biological substances; Z79.82 Long term (current) use of aspirin; Z79.899 Other long term (current) drug therapy; Z90.710 Acquired absence of both cervix and uterus; Z87.891 Personal history of nicotine dependence; Z95.0 Presence of cardiac pacemaker
CPT/HCPCS: 36415; 36416; 36600; 51701; 70450; 71045; 80048; 80053; 80076; 81003; 81015; 82553; 82607; 82728; 82805; 83036; 83540; 83550; 83605; 83735; 83880; 83930; 83935; 84100; 84300; 84443; 84484; 85025; 87040; 87077; 87086; 87186; 93005; 93010; 93306; 94002; 94003; 94660; 96365; 96375; G0378; J0696; J1160; J1250; J1580; J1630; J1650; J1815; J3010; J3370; J3475; J3480; J3490; J7042; J7120; U0003; U0005